=== PATIENT | female | born 1970 | race Hispanic/Latino ===

== ENCOUNTER 2017-09-13 13:02 | Emergency (ER) | payer SELFPAY ==
[2017-09-13 13:11] VITALS: BP 111/71
--- NOTE | 2017-09-13 14:39 | XRay Report ---
FINAL REPORT EXAM: XR CHEST ROUTINE 2V HISTORY: Fall, pain, SOB TECHNIQUE: Frontal and lateral views of the chest. PRIORS: None currently available. FINDINGS: Cardiac silhouette is within normal limits. There is no effusion. There is no pneumothorax. There is no consolidation. There are no suspicious osseous lesions. IMPRESSION: No acute cardiopulmonary findings.
--- NOTE | 2017-09-13 17:15 | Emergency Department Report ---
ED General Adult HPI - General Chief complaint: Pain General Stated complaint: BROKEN RIBS/FALL Time Seen by Provider: 09/13/17 13:50 Source: patient Mode of arrival: Ambulatory Limitations: No Limitations - History of Present Illness Initial comments: States diagnosed with fractured ribs last month and a general today she was in the bathtub and bumped against the faucet she is here with acute exacerbation of her right-sided rib pain, she denied any headache any back pain denying neck pain or loss of consciousness denies any cough denies any fever or denies any hemoptysis denies any abdominal complaints denies any neuro complaints -: Sudden Associated Symptoms: denies other symptoms. denies: confusion, chest pain, cough, diaphoresis, fever/chills, headaches, loss of appetite, malaise, nausea/ vomiting, rash, seizure, shortness of breath, syncope, weakness - Related Data Home Medications Medication Instructions Recorded Confirmed Last Taken Atenolol [Tenormin] 100 mg PO DAILY 12/17/12 01/25/14 01/25/14 Gabapentin [Neurontin] 300 mg PO HS 12/17/12 01/25/14 12/25/13 Metoprolol [Lopressor TAB] 25 mg PO DAILY 12/17/12 01/25/14 01/25/14 carBAMazepine [TEGretol] 200 mg PO Q12HR 12/17/12 01/25/14 01/25/14 Previous Rx's Medication Instructions Recorded Last Taken Type Atenolol 100 mg PO QDAY #30 tablet 01/25/14 Unknown Rx HYDROcodone/APAP 5-325 [[place] 1 each PO Q6HR PRN #14 tablet 04/07/14 Unknown Rx 5-325 mg TAB] Tramadol HCl [traMADol] 50 mg PO Q6HR PRN #25 tablet 04/25/14 Unknown Rx Cyclobenzaprine [Flexeril 10mg] 10 mg PO Q8H PRN #21 tablet 06/15/14 Unknown Rx HYDROcodone/APAP 10-325 [[place] 1 each PO Q6HR PRN #16 tablet 06/15/14 Unknown Rx 10/325] Acetaminophen/Codeine [Tylenol #3] 1 tab PO Q6H PRN #20 tab 04/27/15 Unknown Rx Cyclobenzaprine [Flexeril] 10 mg PO TID PRN #20 tablet 04/27/15 Unknown Rx traMADol [Ultram] 50 mg PO Q6HR PRN #10 tablet 09/13/17 Unknown Rx Allergies Allergy/AdvReac Type Severity Reaction Status Date / Time divalproex sodium Allergy Itching Verified 09/05/13 17:25 [From Depakote] ketorolac tromethamine Allergy Nausea Verified 09/05/13 17:25 [From Toradol] aspirin AdvReac Vomiting Verified 09/05/13 17:25 ibuprofen [From Motrin] AdvReac Vomiting Verified 09/05/13 17:25 ED Review of Systems ROS: Stated complaint: BROKEN RIBS/FALL Other details as noted in HPI Comment: All other systems reviewed and negative Constitutional: denies: diaphoresis, fever, malaise Eyes: denies: eye discharge, vision change ENT: denies: dental pain, hearing loss, epistaxis Respiratory: denies: shortness of breath, SOB with exertion, SOB at rest, stridor Cardiovascular: as per HPI. denies: palpitations, dyspnea on exertion, orthopnea, edema, syncope, paroxysmal nocturnal dyspnea Musculoskeletal: as per HPI, arthralgia, myalgia Skin: denies: rash Neurological: denies: headache, weakness, numbness, paresthesias, confusion, abnormal gait, vertigo ED Past Medical Hx - Past Medical History Hx Hypertension: Yes Hx Seizures: Yes Additional medical history: Mitral valve prolapse ; svt; peptic ulcers; sciatica. herniated disc - Surgical History Additional Surgical History: csection x 2 tubal ligation - Social History Smoking Status: Current Every Day Smoker Substance Use Type: None - Medications Home Medications: Home Medications Medication Instructions Recorded Confirmed Last Taken Type Atenolol [Tenormin] 100 mg PO DAILY 12/17/12 01/25/14 01/25/14 History Gabapentin [Neurontin] 300 mg PO HS 12/17/12 01/25/14 12/25/13 History Metoprolol [Lopressor TAB] 25 mg PO DAILY 12/17/12 01/25/14 01/25/14 History carBAMazepine [TEGretol] 200 mg PO Q12HR 12/17/12 01/25/14 01/25/14 History Atenolol 100 mg PO QDAY #30 tablet 01/25/14 Unknown Rx HYDROcodone/APAP 5-325 [[place] 1 each PO Q6HR PRN #14 tablet 04/07/14 Unknown Rx 5-325 mg TAB] Tramadol HCl [traMADol] 50 mg PO Q6HR PRN #25 tablet 04/25/14 Unknown Rx Cyclobenzaprine [Flexeril 10mg] 10 mg PO Q8H PRN #21 tablet 06/15/14 Unknown Rx HYDROcodone/APAP 10-325 [[place] 1 each PO Q6HR PRN #16 tablet 06/15/14 Unknown Rx 10/325] Acetaminophen/Codeine [Tylenol #3] 1 tab PO Q6H PRN #20 tab 04/27/15 Unknown Rx Cyclobenzaprine [Flexeril] 10 mg PO TID PRN #20 tablet 04/27/15 Unknown Rx traMADol [Ultram] 50 mg PO Q6HR PRN #10 tablet 09/13/17 Unknown Rx ED Physical Exam - General Limitations: No Limitations General appearance: alert - Head Head exam: Present: atraumatic, normocephalic - Eye Eye exam: Present: normal appearance, PERRL, EOMI - ENT ENT exam: Present: normal exam, normal orophraynx - Neck Neck exam: Present: normal inspection. Absent: tenderness, meningismus - Respiratory Respiratory exam: Present: normal lung sounds bilaterally, chest wall tenderness. Absent: respiratory distress, wheezes, rales, rhonchi, stridor, accessory muscle use, decreased breath sounds, prolonged expiratory - Cardiovascular Cardiovascular Exam: Present: regular rate, normal rhythm, normal heart sounds. Absent: systolic murmur, diastolic murmur, rubs, gallop - GI/Abdominal GI/Abdominal exam: Present: soft. Absent: distended, tenderness, guarding, rebound, rigid, mass, pulsatile mass - Extremities Exam Extremities exam: Present: normal inspection. Absent: tenderness, normal capillary refill, pedal edema, joint swelling - Back Exam Back exam: Present: normal inspection. Absent: paraspinal tenderness, vertebral tenderness - Neurological Exam Neurological exam: Present: alert, oriented X3, CN II-XII intact. Absent: motor sensory deficit ED Course Vital Signs 09/13/17 13:04 Temperature 98.6 F Pulse Rate 67 Respiratory 16 Rate Blood Pressure 111/71 O2 Sat by Pulse 98 Oximetry ED Medical Decision Making - Radiology Data Radiology results: report reviewed - Medical Decision Making Chest x-ray negative per radiology, the patient is all no abd complaints ab is soft nontender no acute abdomen at this time, no evidence of sepsis or pneumonia and no hemoptysis or evidence of lung contusion at this time. Pulses are equal. The remainder of the exam is within normal limits. She is therefore stable for outpatient follow-up, she was evaluated on the [facility] aware because she is allergic to all NSAIDs and is currently having on her drug list of [employer], we will be cautious with pain medication in this patient we will encourage Tylenol as well as some Ultram if the pain is worse Critical care attestation.: If time is entered above; I have spent that time in minutes in the direct care of this critically ill patient, excluding procedure time. ED Disposition Clinical Impression: Contusion of rib on right side Disposition: DC- TO HOME OR SELFCARE Is pt being admited?: No Condition: Stable Instructions: Rib Fracture (ED) Additional Instructions: Return immediately if new or alarming symptoms such as fever or worse chest pain or abdominal pain coughing up blood or other problems Tylenol as needed as directed [id number] for pain Prescriptions: traMADol [Ultram] 50 mg PO Q6HR PRN #10 tablet PRN Reason: Pain Referrals: PRIMARY CARE, [Primary Care Provider] - 3-5 Days Time of Disposition: 17:16
== END 2017-09-13 17:25 | disposition home or self-care (01) ==
LOC: ED 13:02
DX: S20.211A Contusion of right front wall of thorax, initial encounter (principal); I10 Essential (primary) hypertension; F17.200 Nicotine dependence, unspecified, uncomplicated; Z98.51 Tubal ligation status; Z88.1 Allergy status to other antibiotic agents; Z88.8 Allergy status to other drugs, medicaments and biological substances; Z88.6 Allergy status to analgesic agent; W22.8XXA Striking against or struck by other objects, initial encounter; Y93.89 Activity, other specified; Y92.091 Bathroom in other non-institutional residence as the place of occurrence of the external cause; Y99.8 Other external cause status
CPT/HCPCS: 71046; 99283